=== PATIENT | female | born 1960 | race Hispanic/Latino ===

== ENCOUNTER → 2024-07-19 | Outpatient (REF) | payer OTHER | LOC: RAD 09:59 | PROVIDERS: ATTEND Family Medicine Adult Medicine | DX: R01.1 Cardiac murmur, unspecified (principal) | CPT/HCPCS: 93306 ==

== ENCOUNTER 2024-07-23 09:00 | Outpatient (RCR) | payer OTHER | END 2024-07-28 | LOC: PT 09:00 | PROVIDERS: ATTEND Family Medicine Adult Medicine | DX: M76.31 Iliotibial band syndrome, right leg (principal) ==

== ENCOUNTER 2024-07-31 08:48 | Outpatient (RCR) | payer OTHER | END 2024-08-27 | LOC: PT 08:48 | PROVIDERS: ATTEND Family Medicine Adult Medicine | DX: M76.31 Iliotibial band syndrome, right leg (principal) ==

== ENCOUNTER → 2024-12-28 | Outpatient (REF) | payer MEDICARE | LOC: RAD 10:17 | PROVIDERS: ATTEND Family Medicine Adult Medicine | DX: M54.50 Low back pain, unspecified (principal); M25.552 Pain in left hip; M25.551 Pain in right hip | CPT/HCPCS: 72110; 73522 ==

== ENCOUNTER → 2025-01-15 | Outpatient (REF) | payer MEDICARE | LOC: MRI 09:18 | PROVIDERS: ATTEND Family Medicine Adult Medicine | DX: M47.816 Spondylosis without myelopathy or radiculopathy, lumbar region (principal); G57.10 Meralgia paresthetica, unspecified lower limb | CPT/HCPCS: 72148 ==